=== PATIENT | male | born 1965 | race Caucasian/White ===

== ENCOUNTER 2017-07-28 07:57 | Inpatient (IN) | payer BC ==
[~2017-07-28] VITALS: Ht 177.8 cm; Wt 113.4 kg
[2017-07-28 08:01] VITALS: BP_SYST 210
[2017-07-28] MEDS ORDERED: METOPROLOL TARTRATE 5 MG/5 ML VIAL IVP ONE (08:15)
[2017-07-28] MEDS ORDERED: ASPIRIN 81 MG TAB.CHEW PO ONE ×2 (08:15→15:00)
[2017-07-28 08:55] LABS: BASOPHILS # (AUTO) 0.1 K/uL (0.0-0.2); BASOPHILS % (AUTO) 1.1 % (0.0-2.0); EOSINOPHILS # (AUTO) 0.3 K/uL (0.0-0.4); EOSINOPHILS % (AUTO) 4.2 % (0.0-4.0); HEMATOCRIT 47.2 % (36-54); HEMOGLOBIN 15.9 g/dL (14.0-18.0); LYMPHOCYTES # (AUTO) 2.2 K/uL (1.0-5.5); LYMPHOCYTES % (AUTO) 28.2 % (20.5-51.5); MEAN CORPUSCULAR HEMOGLOBIN 30 pg (27-31); MEAN CORPUSCULAR HGB CONC 34 % (32-36); MEAN CORPUSCULAR VOLUME 90 fL (79.0-98.0); MONOCYTES # (AUTO) 0.6 K/uL (0.0-1.0); MONOCYTES % (AUTO) 7.3 % (1.7-9.3); NEUTROPHILS # (AUTO) 4.7 K/uL (1.8-7.7); NEUTROPHILS % (AUTO) 59.2 % (40.0-70.0); PLATELET COUNT (AUTO) 197 K/uL (130-430); RED BLOOD CELL COUNT(AUTO) 5.27 MIL/uL (4.2-6.2); RED CELL DISTRIBUTION WIDTH 12.6 % (9.0-15.0); WHITE BLOOD COUNT (AUTO) 7.9 K/uL (4.8-10.8)
[2017-07-28 08:59] LABS: CALCIUM 9.2 mg/dL (8.4-11.0); CREATININE 0.8 mg/dL (0.55-1.30); POTASSIUM 3.9 mmol/L (3.5-5.1)
[2017-07-28 09:02] LABS: PROTHROMBIN TIME 10.1 SECS (9.5-12.5)
[2017-07-28 09:03] LABS: ALBUMIN 3.7 g/dL (3.4-4.8); TOTAL BILIRUBIN 0.5 mg/dL (0.0-1.0)
[2017-07-28] MEDS ORDERED: ENALAPRILAT DIHYDRATE 1.25 MG/ML VIAL IVP ONE (10:00)
[2017-07-28 10:37] VITALS: BP_SYST 176
[2017-07-28] MEDS: hydrALAZINE HCL 20 MG/ML VIAL IVP PRN (12:42)
[2017-07-28 14:07] VITALS: BP_SYST 151
[2017-07-28] MEDS ORDERED: LISINOPRIL 20 MG TABLET PO ONE (15:00)
[2017-07-28] MEDS ORDERED: amLODIPine BESYLATE 10 MG TABLET PO ONE (15:00)
[2017-07-28 16:44] VITALS: BP_SYST 148
[2017-07-28 20:00] VITALS: BP_SYST 148
[2017-07-29 00:16] VITALS: BP_SYST 132
[2017-07-29 06:36] LABS: BASOPHILS # (AUTO) 0.1 K/uL (0.0-0.2); BASOPHILS % (AUTO) 1.7 % (0.0-2.0); EOSINOPHILS # (AUTO) 0.4 K/uL (0.0-0.4); HEMATOCRIT 47.7 % (36-54); HEMOGLOBIN 15.8 g/dL (14.0-18.0); LYMPHOCYTES # (AUTO) 2.5 K/uL (1.0-5.5); LYMPHOCYTES % (AUTO) 29.6 % (20.5-51.5); MEAN CORPUSCULAR HEMOGLOBIN 30 pg (27-31); MEAN CORPUSCULAR HGB CONC 33 % (32-36); MEAN CORPUSCULAR VOLUME 90 fL (79.0-98.0); MONOCYTES # (AUTO) 0.7 K/uL (0.0-1.0); MONOCYTES % (AUTO) 8.1 % (1.7-9.3); NEUTROPHILS # (AUTO) 4.6 K/uL (1.8-7.7); NEUTROPHILS % (AUTO) 55.6 % (40.0-70.0); PLATELET COUNT (AUTO) 212 K/uL (130-430); RED BLOOD CELL COUNT(AUTO) 5.29 MIL/uL (4.2-6.2); RED CELL DISTRIBUTION WIDTH 12.9 % (9.0-15.0); WHITE BLOOD COUNT (AUTO) 8.3 K/uL (4.8-10.8)
[2017-07-29 07:25] LABS: POTASSIUM 3.7 mmol/L (3.5-5.1); SODIUM SERUM 138 mmol/L (136-145)
[2017-07-29 07:26] LABS: ANION GAP 7 (5-15); CALCIUM 9.1 mg/dL (8.4-11.0); CHLORIDE 103 mmol/L (98-107); CREATININE 0.82 mg/dL (0.55-1.30); GLUCOSE 108 mg/dL (70-99); UREA NITROGEN, BLOOD 12 mg/dL (8-21)
[2017-07-29 07:27] LABS: ALANINE AMINOTRANSFERASE 85 U/L (12-78); ALBUMIN 3.4 g/dL (3.4-4.8); ASPARTATE AMINOTRANSFERASE 31 U/L (10-37); THYROID STIMULATING HORMONE 1.33 uIu/mL (0.36-3.74); TOTAL BILIRUBIN 0.6 mg/dL (0.0-1.0)
[2017-07-29 08:00] VITALS: BP_SYST 151
[2017-07-29 08:16] LABS: CHOLESTEROL 252 mg/dL (<200); HDL CHOLESTEROL 38 mg/dL (>45); TRIGLYCERIDES 280 mg/dL (30-150)
[2017-07-29 08:17] LABS: LDL CHOLESTEROL 168 mg/dL (<100)
[2017-07-29] MEDS ORDERED: LISINOPRIL 20 MG TABLET PO SCH (09:00)
[2017-07-29] MEDS ORDERED: ASPIRIN 81 MG TAB.CHEW PO SCH (09:00)
[2017-07-29] MEDS ORDERED: amLODIPine BESYLATE 10 MG TABLET PO SCH (09:00)
[2017-07-29] MEDS ORDERED: ATORVASTATIN 20 MG TABLET PO SCH (09:00)
[2017-07-29] MEDS: hydrALAZINE HCL 20 MG/ML VIAL IVP PRN (11:37)
[2017-07-29 12:30] VITALS: BP_SYST 143
[2017-07-29] MEDS ORDERED: NOR10 PO (14:35)
[2017-07-29] MEDS ORDERED: ASPI-1063 PO (14:35)
[2017-07-29] MEDS ORDERED: LISI-600 PO (14:35)
[2017-07-29] MEDS ORDERED: LIP40 PO (14:36)
[2017-07-29 14:48] VITALS: BP_SYST 151
[2017-07-29 16:00] VITALS: BP_SYST 142
== END 2017-07-29 15:20 | disposition home or self-care (01) | DRG 305 ==
LOC: SED 07:57 → STU 10:02
PROVIDERS: ADMIT Internal Medicine; ATTEND Internal Medicine
DX: I16.0 Hypertensive urgency (principal); E66.9 Obesity, unspecified; E78.5 Hyperlipidemia, unspecified; R73.9 Hyperglycemia, unspecified; Z91.19 Patient's noncompliance with other medical treatment and regimen; Z68.35 Body mass index [BMI] 35.0-35.9, adult; Z90.49 Acquired absence of other specified parts of digestive tract
CPT/HCPCS: 36415; 71045; 80053; 80061; 83735-TC; 84443-TC; 84484; 85025; 85610-TC; 93005; 93306; 93880; 96374; 96375; 99285; J0360; J3490